=== PATIENT | female | born 1950 | race Caucasian/White ===

== ENCOUNTER → 2017-06-13 | Outpatient (CLI) | payer MEDICARE ==
[~2017-06-13] MED LIST: GADAVIST IV PRN
--- NOTE | 2017-06-13 20:02 | DIAGNOSTIC IMAGING REPORT ---
BRAIN COMBO FOR IAC CLINICAL HISTORY: ATTN IAC,MENIERES DISEASE TECHNIQUE: MRI multi axial acquisition. Specific images of the internal artery canals COMPARISON STUDY: None FINDINGS: Diffusion-weighted images are negative for an acute ischemic insult. Signal characteristics of the cerebellar as well as cerebral hemispheres are unremarkable. Internal auditory canals are normal. The sella and parasellar regions are unremarkable. No evidence for abnormal postcontrast enhancement. Ventricular system is midline. IMPRESSION: Normal study The above report was generated using voice recognition software. It may contain grammatical, syntax or spelling errors. Electronically signed by: Yunior Hernandez M.D. 06/13/2017 8:01 PM Dictated Date/Time: 06/13/2017 7:57 PM
== END | disposition home or self-care (01) ==
LOC: C.MRI 18:47
PROVIDERS: ATTEND Otolaryngology
DX: H81.01 Meniere's disease, right ear (principal)